=== PATIENT | female | born 1970 | race Two or more races ===

== ENCOUNTER 2017-01-29 10:51 | Inpatient (IN) | payer MEDICAID ==
[~2017-01-29] VITALS: Ht 167.6 cm; Wt 59.6 kg
[2017-01-29] MEDS ORDERED: HALOPERIDOL 5 MG TABLET PO PRN (11:45)
[2017-01-29 11:51] VITALS: BP 119/79
[2017-01-29] MEDS ORDERED: ALBUTEROL SULFATE HFA 90 MCG/PUFF 8 GM INHALER IH PRN (13:00)
[2017-01-29 13:01] VITALS: BP 143/93
[2017-01-29] MEDS ORDERED: BUPR100 PO (13:06)
[2017-01-29] MEDS ORDERED: AMPH20TA3 PO (13:06)
[2017-01-29] MEDS ORDERED: ALBU8HFA IH (13:08)
[2017-01-29] MEDS ORDERED: OXYM15MI5 NS (13:08)
[2017-01-29] MEDS: LORazepam 2 MG TABLET PO PRN ×2 (13:19→19:02)
[2017-01-29 16:10] VITALS: BP 131/85
[2017-01-29] MEDS: COLLOIDAL OATMEAL PACKET TP SCH (16:32)
[2017-01-29] MEDS: OXYMETAZOLINE HCL 0.05% 15 ML NASAL SPRAY NASAL PRN (19:04)
[2017-01-29] MEDS: ZOLPIDEM TARTRATE 10 MG TABLET PO PRN (21:07)
[2017-01-30 05:35] VITALS: BP 128/84
[2017-01-30] MEDS: OXYMETAZOLINE HCL 0.05% 15 ML NASAL SPRAY NASAL PRN (05:37)
[2017-01-30 07:34] LABS: BASOPHILS # (AUTO) 0.03 K/uL (0.00-0.20); BASOPHILS % (AUTO) 0.6 % (0.0-2.0); EOSINOPHILS # (AUTO) 0.15 K/uL (0.00-0.70); EOSINOPHILS % (AUTO) 2.72 % (1.0-6.0); HEMATOCRIT 37.6 % (36-46); HEMOGLOBIN 12.7 g/dL (12.0-16.0); LYMPHOCYTES # (AUTO) 1.6 K/uL (1.0-4.8); LYMPHOCYTES % (AUTO) 29.2 % (22.0-44.0); MEAN CORPUSCULAR HEMOGLOBIN 31.3 pg (26.0-34.0); MEAN CORPUSCULAR HGB CONC 33.8 G/dL (31.0-37.0); MEAN CORPUSCULAR VOLUME 92 fL (80-100); MONOCYTES # (AUTO) 0.5 K/uL (0.1-1.0); MONOCYTES % (AUTO) 8.5 % (2.0-9.0); NEUTROPHILS # (AUTO) 3.3 K/uL (1.8-7.7); NEUTROPHILS % (AUTO) 59.1 % (40.0-70.0); PLATELET COUNT (AUTO) 304 K/uL (150-450); RED BLOOD CELL COUNT(AUTO) 4.07 MIL/uL (4.00-5.20); RED CELL DISTRIBUTION WIDTH 12.5 % (11.5-14.5); WHITE BLOOD COUNT (AUTO) 5.6 K/uL (4.5-11.0)
[2017-01-30 07:57] LABS: ALANINE AMINOTRANSFERASE 25 U/L (12-78); ALBUMIN 3.9 g/dL (3.4-5.0); ANION GAP 5 mmol/L (8-16); ASPARTATE AMINOTRANSFERASE 15 U/L (15-37); BILIRUBIN,TOTAL 0.5 mg/dL (0.1-1.0); CARBON DIOXIDE 30 mmol/L (22-29); CHLORIDE 107 mmol/L (98-107); CREATININE 0.81 mg/dL (0.60-1.30); GLOMERULAR FILTR. RATE CALC > 60 mL/min (>60); POTASSIUM 4.8 mmol/L (3.5-5.1); SODIUM SERUM 142 mmol/L (136-145); TOTAL PROTEIN, SERUM 6.8 g/dL (6.4-8.2); UREA NITROGEN, BLOOD 10 mg/dL (7-18)
[2017-01-30 08:10] VITALS: BP 110/68
[2017-01-30 08:36] LABS: APPEARANCE,URINE CLEAR (CLEAR); GLUCOSE, URINE (UA) NEGATIVE (NEGATIVE); KETONES,URINE NEGATIVE (NEGATIVE); LEUKOCYTE ESTERASE ,URINE NEGATIVE (NEGATIVE); OCCULT BLOOD,URINE NEGATIVE (NEGATIVE); PROTEIN,URINE NEGATIVE (NEGATIVE)
[2017-01-30 08:37] LABS: ADD UA MICROSCOPIC NO
[2017-01-30] MEDS ORDERED: AMPHETAMINE/DEXTROAMPHETAMINE 10 MG TABLET PO SCH ×2 (09:00→12:00)
[2017-01-30] MEDS: COLLOIDAL OATMEAL PACKET TP SCH ×2 (09:05→16:25)
[2017-01-30] MEDS: DEXTROAMPHETAMINE PO SCH ×2 (09:05→11:35)
[2017-01-30] MEDS: AMPHETAMINE PO SCH ×2 (09:05→11:35)
[2017-01-30] MEDS: BuPROPion HCL XL 150 MG ER TABLET PO SCH (09:06)
[2017-01-30] MEDS: LORazepam 2 MG TABLET PO PRN ×2 (09:06→16:25)
[2017-01-30 13:10] VITALS: BP 119/78
[2017-01-30] MEDS ORDERED: ACETAMINOPHEN 325 MG TABLET PO PRN ×2 (13:15→21:30)
[2017-01-30] MEDS ORDERED: IBUPROFEN 600 MG TABLET PO PRN (13:15)
[2017-01-30 16:02] VITALS: BP 117/81
[2017-01-30] MEDS: ZOLPIDEM TARTRATE 10 MG TABLET PO PRN (21:22)
[2017-01-30] MEDS ORDERED: IBUPROFEN 400 MG TABLET PO PRN (21:30)
[2017-01-30] MEDS ORDERED: ALBUTEROL SULFATE HFA 90 MCG/PUFF 8 GM INHALER IH PRN (21:30)
[2017-01-31] MEDS: LORazepam 2 MG TABLET PO PRN ×3 (01:19→16:18)
[2017-01-31] MEDS: OXYMETAZOLINE HCL 0.05% 15 ML NASAL SPRAY NASAL PRN (05:52)
[2017-01-31 06:22] VITALS: BP 110/76
[2017-01-31] MEDS: BuPROPion HCL XL 150 MG ER TABLET PO SCH (08:35)
[2017-01-31] MEDS: COLLOIDAL OATMEAL PACKET TP SCH ×2 (08:36→17:00)
[2017-01-31] MEDS: DEXTROAMPHETAMINE PO SCH ×2 (08:37→11:53)
[2017-01-31] MEDS: AMPHETAMINE PO SCH ×2 (08:37→11:53)
[2017-01-31 08:53] LABS: CHOL/HDL RATIO 3.4 (3.9-5.7)
[2017-01-31 09:09] LABS: THYROID STIMULATING HORMONE 1.03 uIU/mL (0.36-3.74)
[2017-01-31 09:10] LABS: HEMOGLOBIN A1C 5.7 % (4.5-6.2)
[2017-01-31 09:22] VITALS: BP 116/74
[2017-01-31 16:27] VITALS: BP 114/75
[2017-01-31] MEDS ORDERED: OXYMETAZOLINE HCL 0.05% 15 ML NASAL SPRAY NASAL PRN (17:00)
[2017-01-31] MEDS: ZOLPIDEM TARTRATE 10 MG TABLET PO PRN (21:01)
[2017-02-01 08:11] VITALS: BP 118/83
[2017-02-01] MEDS: LORazepam 2 MG TABLET PO PRN (08:48)
[2017-02-01] MEDS: DEXTROAMPHETAMINE PO SCH (08:48)
[2017-02-01] MEDS: COLLOIDAL OATMEAL PACKET TP SCH (08:48)
[2017-02-01] MEDS: BuPROPion HCL XL 150 MG ER TABLET PO SCH (08:48)
[2017-02-01] MEDS: AMPHETAMINE PO SCH (08:48)
[2017-02-01] MEDS ORDERED: OATMEAL BATH TP (09:43)
[2017-02-01] MEDS ORDERED: BUPR-93 PO (09:43)
== END 2017-02-01 11:40 | disposition home or self-care (01) | DRG 751 ==
LOC: B3A 11:51
DX: F33.2 Major depressive disorder, recurrent severe without psychotic features (principal); R45.851 Suicidal ideations; J45.909 Unspecified asthma, uncomplicated; F12.10 Cannabis abuse, uncomplicated; Z71.51 Drug abuse counseling and surveillance of drug abuser; Z88.6 Allergy status to analgesic agent; Z91.018 Allergy to other foods; Z79.899 Other long term (current) drug therapy; Z91.5 Personal history of self-harm; Z82.5 Family history of asthma and other chronic lower respiratory diseases; Z82.49 Family history of ischemic heart disease and other diseases of the circulatory system
CPT/HCPCS: 80307; 83036; 84443